=== PATIENT | female | born 1955 | race African-American/Black ===

== ENCOUNTER 2017-01-08 17:50 | Emergency (ER) | payer OTHER ==
[~2017-01-08] VITALS: Ht 152.4 cm; Wt 77.0 kg
[~2017-01-08 17:50] MED LIST: ACET-784 PO; ASPI81 PO; CETI-260 PO; CITA10TA68 PO; FLUT16H NASAL; GABA-531 PO; GLIP10 PO; HC1C30 TP; HUMLIS7525 SQ; LISI-662 PO; METF500T4 PO; METO25 PO; NITR.4 SL; SIMV-260 PO; SITA100 PO; TRAM50TA4 PO; [UNRECOGNIZED DRUG - CODE] TP
[2017-01-08 18:02] LABS: GLUCOSE,POINT OF CARE 163 MG/DL (70-110)
[2017-01-08] MEDS ORDERED: IBUPROFEN 600 MG TABLET PO ONE (19:15)
[2017-01-08 19:35] VITALS: BP 139/81
== END 2017-01-08 19:52 | disposition home or self-care (01) ==
LOC: EMS 17:52
DX: S93.402A Sprain of unspecified ligament of left ankle, initial encounter (principal); E11.9 Type 2 diabetes mellitus without complications; I10 Essential (primary) hypertension; Z79.82 Long term (current) use of aspirin; Z79.4 Long term (current) use of insulin; W18.40XA Slipping, tripping and stumbling without falling, unspecified, initial encounter; Y93.89 Activity, other specified; Y92.89 Other specified places as the place of occurrence of the external cause; Y99.8 Other external cause status
CPT/HCPCS: 82962; 99284